=== PATIENT | female | born 1960 | race Caucasian/White ===

== ENCOUNTER 2017-10-22 08:38 | Day surgery (SDC) | payer OTHER ==
[2017-10-22] MEDS ORDERED: PROPOFOL 20 ML ×2 (09:22→10:15)
[2017-10-22] MEDS ORDERED: MIDAZOLAM 1 MG/ML 2 ML INJ (09:23)
[2017-10-22] MEDS ORDERED: FENTAnyl 50 MCG/ML VIAL (09:23)
[2017-10-22] MEDS ORDERED: GLYCOPYRROLATE 0.4 MG INJ (09:27)
[2017-10-22] MEDS ORDERED: EPHEDrine SULFATE 50 MG/5 ML SYG (12:13)
== END 2017-10-22 11:40 | disposition home or self-care (01) ==
LOC: GIL 08:38
DX: Z12.11 Encounter for screening for malignant neoplasm of colon (principal); D12.5 Benign neoplasm of sigmoid colon; K57.90 Diverticulosis of intestine, part unspecified, without perforation or abscess without bleeding; K29.70 Gastritis, unspecified, without bleeding; K20.8 Other esophagitis
CPT/HCPCS: 43239; 88305

== ENCOUNTER 2019-01-12 07:28 | Day surgery (SDC) | payer OTHER ==
[~2019-01-12 07:28] MED LIST: SOD CHLORIDE 0.45% 1,000 ML IV
[2019-01-12 08:23] LABS: ADD MAN DIFF? NO
[2019-01-12 08:32] LABS: WHITE BLOOD COUNT 6.5 10^3/ul (4.8-10.8)
[2019-01-12 08:32] LABS: BASOPHILS % 0.5 % (0.0-2.0); EOSINOPHILS # 0.2 10^3/ul (0.0-0.5); EOSINOPHILS % 2.6 % (0.0-7.0); HEMATOCRIT 44.9 % (37.0-47.0); HEMOGLOBIN 14.7 g/dl (12.0-16.0); LYMPHOCYTES # 1.2 10^3/ul (0.8-2.9); MEAN CORPUSCULAR HEMOGLOBIN 32.7 pg (29.0-33.0); MEAN CORPUSCULAR HGB CONC 32.7 g/dl (32.0-37.0); MEAN CORPUSCULAR VOLUME 99.8 fl (82.0-101.0); MEAN PLATELET VOLUME 9.9 fl (7.4-10.4); MONOCYTE # 0.6 10^3/ul (0.3-0.9); MONOCYTES % 8.6 % (0.0-11.0); NEUTROPHIL # 4.5 10^3/ul (1.6-7.5); NEUTROPHILS % 69.8 % (39.0-77.0); PLATELET COUNT 230 10^3/UL (140-415); RED CELL DISTRIBUTION WIDTH 15.3 % (11.5-14.5)
[2019-01-12 08:45] LABS: ANION GAP 5 (5-13); BLOOD UREA NITROGEN 18 mg/dl (7-20); CALCIUM 9.1 mg/dl (8.4-10.2); CARBON DIOXIDE 31 mmol/L (21-31); CHLORIDE 104 mmol/L (97-110); CHOL/HDL RATIO 2.3 RATIO; CHOLESTEROL 160 mg/dl (100-200); CREATININE 0.81 mg/dl (0.44-1.00); Estimated GFR > 60 mL/min (>60); GLUCOSE 118 mg/dl (70-220); HDL CHOLESTEROL 69 mg/dl (37-92); INR 0.85; LDL CHOLESTEROL,CALCULATED 74 mg/dl; PARTIAL THROMBOPLASTIN TIME 28.7 Sec (23.0-35.0); PROTIME 11.7 Sec (11.9-14.9); PT RATIO 0.9; SODIUM 140 mmol/L (135-144); TRIGLYCERIDES 86 mg/dl (0-149)
[2019-01-12] MEDS: DIPHENHYDRAMINE 50 MG CAP PO (08:56)
[2019-01-12] MEDS: FAMOTIDINE 20 MG TAB PO (08:56)
[2019-01-12] MEDS: DIAZEPAM 5 MG TAB PO (08:57)
[2019-01-12] MEDS ORDERED: LIDOCAINE 1% (MDV) 20 ML INJ (09:31)
[2019-01-12] MEDS ORDERED: SOD CHLORIDE 0.9% 500 ML (09:31)
[2019-01-12] MEDS ORDERED: FENTAnyl 50 MCG/ML VIAL (09:31)
[2019-01-12] MEDS ORDERED: IODIXANOL LOCM 100 ML BTL ×3 (09:31→11:14)
[2019-01-12] MEDS ORDERED: MIDAZOLAM 1 MG/ML 2 ML INJ (09:32)
[2019-01-12] MEDS ORDERED: SOD CHLORIDE 0.9% 1,000 ML IV (11:23)
[2019-01-12] MEDS ORDERED: morphine 2 MG INJ IV (11:30)
[2019-01-12] MEDS ORDERED: AL HYDROX/MG HYDROX/SIMETH 30 ML CUP PO (11:30)
[2019-01-12] MEDS ORDERED: ONDANSETRON 4 MG INJ IV (11:30)
[2019-01-12] MEDS ORDERED: ACETAMINOPHEN 325 MG TAB PO (11:30)
[2019-01-12] MEDS: ALPRAZOLAM 1 MG TAB PO (13:13)
== END 2019-01-12 18:10 | disposition home or self-care (01) ==
LOC: SDS 07:28
DX: I73.9 Peripheral vascular disease, unspecified (principal); E03.9 Hypothyroidism, unspecified
CPT/HCPCS: 36246; 71045; 75630; 80048; 80061; 85025; 85610; 85730; 93005; 93922